=== PATIENT | female | born 1930 | race Caucasian/White ===

== ENCOUNTER 2017-10-20 20:42 | Emergency (ER) | payer MEDICARE, OTHER ==
[~2017-10-20] VITALS: Ht 165.1 cm; Wt 60.0 kg
[2017-10-20 20:49] VITALS: BP 133/65; PULSE 69; RESP 16; TEMP 98.4; O2SAT 95
[2017-10-20] MEDS ORDERED: METO50TA PO (20:57)
[2017-10-20] MEDS ORDERED: ASPI-516 CHEW (20:57)
[2017-10-20] MEDS ORDERED: LISI20TA3 PO (20:57)
[2017-10-20] MEDS ORDERED: LIDOCAINE HCL 1% PF 30 ML VIAL INFIL ONE (21:00)
[2017-10-20] MEDS ORDERED: TETANUS/DIPHTHERIA TOXOID ADULT 0.5 ML VIAL IM ONE (21:00)
--- NOTE | 2017-10-20 21:30 | PD ---
HPI Chief Complaint: Fall Time Seen by Provider: 20:49 Travel History International Travel<30 days: No Contact w/Intl Traveler<30days: No Traveled to known affect area: No History of Present Illness HPI 87-year-old female who presents to the ED for evaluation of fall occurred. Per patient she has not tripped over her shoes and landed on her head. She did not lose consciousness. Ambulance was called. Patient was on both her and seen. Patient suffered a head injury on the left upper forehead as well as a laceration. Patient has significant tenderness. Patient she has no pain. No back pain or neck pain. No arm pain. Does have an abrasion and bruise to her left hand but she denies any pain. She denies any hip pain. No arm pain or leg pain. No ankle pain. Pain per patient on the head is 2 out of 10 and early. Denies any numbness, teething, weakness. No blurred vision or double vision. Injury occurred 1 hour ago. Patient was reviewed by ambulance. [facility] Past Medical History Hypertension: Yes Social History Alcohol Use: No Tobacco Use: No Substance Use: No Allergies-Medications (Allergen,Severity, Reaction): Coded Allergies: No Known Allergies (Unverified , 10/20/17) Reported Meds & Prescriptions Reported Meds & Active Scripts Active Reported Metoprolol Tartrate 50 Mg Tab 50 Mg PO BID Lisinopril-Hctz 20-25 Mg Tab 1 Tab PO DAILY Aspirin 81 Mg Chew 81 Mg CHEW DAILY Review of Systems Except as stated in HPI: all other systems reviewed are Neg Physical Exam Narrative GENERAL: SKIN: Warm and dry. Patient has superficial 2 cm laceration vertical on the left forehead. Minimal bleeding noted. HEAD: Atraumatic. Normocephalic. EYES: Pupils equal and round. No scleral icterus. No injection or drainage. ENT: No nasal bleeding or discharge. Mucous membranes pink and moist. Tongue is midline. No uvula deviation. NECK: Trachea midline. No JVD. CARDIOVASCULAR: Regular rate and rhythm. No murmurs, S3, S4. RESPIRATORY: No accessory muscle use. Clear to auscultation. Breath sounds equal bilaterally. GASTROINTESTINAL: Abdomen soft, non-tender, nondistended. Hepatic and splenic margins not palpable. MUSCULOSKELETAL: Extremities without clubbing, cyanosis, or edema. No obvious deformities. Full range of motion of the upper and lower extremities bilaterally. 2+ pulses bilaterally. The lumbar, thoracic and cervical spine tenderness to palpation. Patient has a superficial abrasion/skin with bruising of the dorsal aspect of the right hand. NEUROLOGICAL: Awake and alert. No obvious cranial nerve deficits. Motor grossly within normal limits. Five out of 5 muscle strength in the arms and legs. Normal speech. PSYCHIATRIC: Appropriate mood and affect; insight and judgment normal. Data Data Last Documented VS Vital Signs Date Time Temp Pulse Resp B/P (MAP) Pulse Ox O2 Delivery O2 Flow Rate FiO2 10/20/17 20:52 14 95 Room Air 10/20/17 20:49 98.4 69 133/65 (87) Orders Orders Wound Care (10/20/17 20:53) Tetanus/Diphtheria Tox Adult (Tetanus/Di (10/20/17 21:00) Ct Brain W/O Iv Contrast(Rout) (10/20/17 20:53) Ct Cerv Spine W/O Contrast (10/20/17 20:53) Lidocaine Pf 1% Inj (Xylocaine-Mpf 1% In (10/20/17 21:00) MDM Medical Decision Making Medical Screen Exam Complete: Yes Emergency Medical Condition: Yes Medical Record Reviewed: Yes Interpretation(s) CT of head negative CT of cervical spine showed chronic changes but no sign of acute disease Differential Diagnosis Laceration versus head injury versus fracture versus ICH versus normal exam Narrative Course 87-year-old female who presents to the ED for evaluation of head injury. Patient was properly examined to have signs and symptoms consistent appears to be head injury and laceration. CT of the head was ordered. Explained procedure to the patient instructed to the laceration was repaired see procedure note. Patient was given a tetanus booster. CT of the head was negative for acute disease. Patient was reassured. Motrin and service. Patient was told to get sutures removed in 7 days. Follow-up with PCP. Wound care endorsed. See ED worsening symptoms. Procedures Procedure Narrative LACERATION LOCATION: left forehead LENGTH: 2 cm NUMBER OF STITCHES/BRENT: 5 sutures REPAIR: The area of the laceration was prepped with Betadine and sterilely draped. The laceration was infiltrated with 1% Xylocaine. The wound was copiously irrigated and explored without evidence of foreign body, tendon injury or neurovascular injury. The wound was closed using 4-0 Prolene. This was a 1 layer repair. A sterile dressing was applied. The patient was advised to keep the dressing clean and dry. Patient tolerated the procedure well. Diagnosis Primary Impression: Head injury Qualified Codes: S09.90XA - Unspecified injury of head, initial encounter Additional Impression: Laceration of head Qualified Codes: S01.01XA - Laceration without foreign body of scalp, initial encounter Patient Instructions: General Instructions Additional Instructions: Wound care daily with soap and water. You can apply bandaid if needed. Neosporyn or OTC antibiotic ointment to area as needed twice a day for at least 2 weeks to help with scarring and prevent infection. Meoderma OTC for scarring if needed. Avoid sun exposure for 2 months as the sun could make scar darker and more noticeable. Get sutures removed in 7 days. See ED if worst. Med/Other Pt SpecificInfo: No Change to Meds Disposition: 01 DISCHARGE HOME Condition: Stable Jason Saunders Oct 20, 2017 21:30
--- NOTE | 2017-10-20 22:55 | RADRPT ---
EXAM DATE/TIME: 10/20/2017 22:28 [facility] COMPARISON: No previous studies available for comparison. INDICATIONS : Trauma; fall. RADIATION DOSE: 29.18 CTDIvol (mGy) MEDICAL HISTORY : Hypertension. SURGICAL HISTORY : None. ENCOUNTER: Initial ACUITY: 1 day PAIN SCALE: 5/10 LOCATION: cranial TECHNIQUE: Multiple contiguous axial images were obtained of the head. Using automated exposure control and adj ustment of the mA and/or kV according to patient size, radiation dose was kept as low as reasonably a chievable to obtain optimal diagnostic quality images. DICOM format image data is available electro nically for review and comparison. FINDINGS: CEREBRUM: The ventricles and cortical sulci are widened. There is decreased density in periventricular white ma tter. No evidence of midline shift, mass lesion, hemorrhage or acute infarction. No extra-axial flu id collections are seen. POSTERIOR FOSSA: The cerebellum and brainstem are intact. The 4th ventricle is midline. The cerebellopontine angle i s unremarkable. EXTRACRANIAL: The visualized portion of the orbits is intact. SKULL: The calvaria is intact. No evidence of skull fracture. CONCLUSION: 1. No acute abnormality seen. 2. Atrophy. 3. Suspected small vessel ischemic change in the white matter. Ronnell Iyer MD on October 20, 2017 at 22:53 Board Certified Radiologist. This report was verified electronically.
--- NOTE | 2017-10-20 22:58 | RADRPT ---
EXAM DATE/TIME: 10/20/2017 22:28 [facility] COMPARISON: No previous studies available for comparison. INDICATIONS : Trauma; fall. RADIATION DOSE: 19.41 CTDIvol (mGy) MEDICAL HISTORY : Hypertension. SURGICAL HISTORY : None. ENCOUNTER: Initial ACUITY: 1 day PAIN SCALE: 6/10 LOCATION: neck TECHNIQUE: Volumetric scanning of the cervical spine was performed. Multiplanar reconstructions in the sagittal, coronal and oblique axial planes were performed. Using automated exposure control and adjustment o f the mA and/or kV according to patient size, radiation dose was kept as low as reasonably achievable to obtain optimal diagnostic quality images. DICOM format image data is available electronically f or review and comparison. FINDINGS: There is approximately 3 mm of degenerative anterolisthesis of C3/C4 and C7/T1. No fracture or acute appearing malalignment. Vertebral bodies have normal height. 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 Severe disc space narrowing with circumferential disc osteophyte complex formation and moderate to se joaquina bilateral uncovertebral and facet osteoarthritis seen at C4/C5, C5/C6 and C6/C7. There is modera te spinal stenosis at C4/C5 and mild spinal stenosis at C5/C6 and C6/C7. Moderate to severe bilateral foraminal stenosis at each level. There are moderate degenerative changes at C2/C3, C3/C4 and C7/T1. CONCLUSION: Intact cervical spine. Diffuse degenerative changes as above. Ronnell Motley MD on October 20, 2017 at 22:54 Board Certified Radiologist. This report was verified electronically.
[2017-10-20 23:22] VITALS: BP 143/87; PULSE 87; RESP 14; O2SAT 98
== END 2017-10-21 00:04 | disposition home or self-care (01) ==
LOC: NEPE 20:42
DX: S01.81XA Laceration without foreign body of other part of head, initial encounter (principal); S60.222A Contusion of left hand, initial encounter; W01.0XXA Fall on same level from slipping, tripping and stumbling without subsequent striking against object, initial encounter; I10 Essential (primary) hypertension; Z23 Encounter for immunization
CPT/HCPCS: 12011; 70450; 72125; 90471; 90714